=== PATIENT | female | born 1935 | race Caucasian/White ===

== ENCOUNTER 2016-10-07 13:32 | Day surgery (SDC) | payer MEDICARE, BC ==
[2016-10-07 14:28] VITALS: RESP 16; TEMP 97.3
[2016-10-07] MEDS ORDERED: TRIAMCINOLONE ACETONIDE 40 MG/ML SUS ONE (14:40)
[2016-10-07 15:07] VITALS: BP 149/65; PULSE 47; O2SAT 98
== END 2016-10-07 15:20 | disposition home or self-care (01) | DRG 552 ==
LOC: SURG 13:32
PROVIDERS: ATTEND Nurse Anesthetist, Certified Registered
DX: M54.5 Low back pain (principal); M48.8X6 Other specified spondylopathies, lumbar region; M51.16 Intervertebral disc disorders with radiculopathy, lumbar region; Z79.01 Long term (current) use of anticoagulants
CPT/HCPCS: 85610; J3300

== ENCOUNTER 2018-09-21 08:23 | Day surgery (SDC) | payer MEDICARE, BC ==
[2018-09-21] MEDS ORDERED: ACETAZOLAMIDE 250 MG PO ONE (08:38)
[2018-09-21] MEDS: PHENYLEPHRINE HCL 10% OPHTHAL SOL ONE ×2 (08:52→09:05)
[2018-09-21] MEDS: CYCLOPENTOLATE 1% SOL ONE ×2 (08:52→09:06)
[2018-09-21] MEDS: TETRACAINE HCL 0.5 % 1 DROP SOL ONE ×3 (08:52→09:52)
[2018-09-21] MEDS: KETOROLAC 0.5% OPTH 60 DROP SOL ONE ×2 (08:53→09:07)
[2018-09-21] MEDS ORDERED: POVIDONE IODINE 5% SOL ONE (09:47)
[2018-09-21] MEDS ORDERED: MIDAZOLAM 2 MG/2 ML SOL ONE (09:49)
[2018-09-21] MEDS ORDERED: FENTANYL 100MCG/2ML SOL ONE (09:49)
[2018-09-21] MEDS: BSS 500 ML 500 ML IR ONE ×2 (09:57→09:59)
[2018-09-21] MEDS: IMPRIMIS ONE ×2 (09:58→10:08)
[2018-09-21] MEDS: LIDOCAINE HCL 1% MPF 30 SOL ONE ×2 (09:58→09:59)
[2018-09-21 10:22] VITALS: PULSE 80; RESP 16; TEMP 97.6; O2SAT 94
[2018-09-21 10:40] VITALS: BP 142/86
== END 2018-09-21 11:05 | disposition home or self-care (01) | DRG 125 ==
LOC: SURG 08:23
PROVIDERS: ATTEND Ophthalmology
DX: H25.89 Other age-related cataract (principal)
CPT/HCPCS: J2250; J3010; A9270-GY; J2001